=== PATIENT | male | born 1960 | race Caucasian/White ===

== ENCOUNTER 2017-05-28 18:23 | Emergency (ER) | payer SELFPAY ==
[~2017-05-28] VITALS: Ht 188 cm; Wt 104.0 kg
[2017-05-28 23:25] LABS: BASOPHILS % 0.3 % (0.0-2.0); EOSINOPHILS % 1.7 % (0.0-5.0); HEMATOCRIT. 37.6 % (42.0-52.0); LYMPHOCYTES % 25.8 % (20.0-50.0); MEAN CORPUSCULAR HEMOGLOBIN 34.4 pg (28.0-32.0); MEAN CORPUSCULAR VOLUME 99.7 fL (80.0-94.0); MEAN PLATELET VOLUME 6.6 fl (7.4-10.4); NEUTROPHILS % 64.2 % (40.0-76.0); PLATELET 338 x1000/uL (130-400); RED BLOOD CELL COUNT 3.77 mill/uL (4.7-6.1); RED CELL DISTRIBUTION WIDTH 16.9 % (11.6-14.6)
[2017-05-28 23:33] LABS: D-DIMER 0.27 mg/L FEU (<0.50); PARTIAL THROMBOPLASTIN TIME 23.8 sec (23.4-31.0); PROTHROMBIN TIME 10.5 sec (9.4-11.6)
[2017-05-28 23:36] LABS: CARBON DIOXIDE 25 mEq/L (21-32); CHLORIDE 106 mEq/L (98-107); TROPONIN I < 0.02 ng/mL (0.00-0.04)
[2017-05-29] MEDS ORDERED: LABETALOL 5MG/ML SYR 20 MG/4 ML SYRINGE IV ONE (00:30)
[2017-05-29] MEDS ORDERED: LABETALOL HCL 100MG TABLET PO ONE (00:30)
[2017-05-29] MEDS ORDERED: MORPHINE SULFATE 4 MG/ML CPJ (NOT FOR IM USE) IV ONE (01:00)
[2017-05-29] MEDS ORDERED: CLONIDINE 0.2MG TABLET PO ONE (03:15)
[2017-05-29] MEDS ORDERED: CLONIDINE 0.1MG TABLET PO ONE (04:30)
[2017-05-29] MEDS ORDERED: HYDROCODONE/APAP 7.5/325MG 1 TAB TABLET PO ONE (07:45)
[2017-05-29] MEDS ORDERED: IOHEXOL-350 100 ML BOTTLE ONE (08:35)
[2017-05-29 11:38] VITALS: BP 110/74
== END 2017-05-29 12:04 | disposition home or self-care (01) ==
LOC: ER 23:06
DX: I16.0 Hypertensive urgency (principal); R07.89 Other chest pain; Z86.718 Personal history of other venous thrombosis and embolism; Z79.01 Long term (current) use of anticoagulants
CPT/HCPCS: 36415; 71010; 71275; 80053; 83690; 84484; 85025; 85379; 85610; 85730; 93005; 96374; 96375; 99291; J2270; J3490; Q9967; Z7610